=== PATIENT | female | born 1935 | race Caucasian/White ===

== ENCOUNTER → 2021-01-29 | Outpatient (CLI) | payer BC, OTHER | LOC: ECHO 10:48 | DX: Z01.810 Encounter for preprocedural cardiovascular examination (principal); I11.9 Hypertensive heart disease without heart failure; I08.1 Rheumatic disorders of both mitral and tricuspid valves; I27.20 Pulmonary hypertension, unspecified | CPT/HCPCS: ECHO; 93306 ==

== ENCOUNTER → 2021-03-28 | Outpatient (CLI) | payer BC, OTHER ==
[~2021-03-28] MED LIST: CARTIA XT120 MG PO; ELIQUIS 5 MG TAB5 MG PO; GABAPENTIN800 MG PO; LEVOTHYROXINE25 MCG PO; PRAVASTATIN SOD10 MG PO; PROTONIX 40 MG40 M1 PO; TYLENOL325 MG PO
[2021-03-28 10:45] LABS: HEMOGLOBIN 13.6 gm/dl (12.3-15.3); RED BLOOD COUNT 4.56 M/UL (4.00-5.10); WHITE BLOOD COUNT 6.9 K/UL (4.5-11.0)
[2021-03-28 11:06] LABS: BUN/CREATININE RATIO 19 (0-10)
== END ==
LOC: OPSV2 09:00 → EDSTATUS 09:00 → OPSV2 09:18
PROVIDERS: Orthopaedic Surgery
DX: Z01.818 Encounter for other preprocedural examination (principal); M75.102 Unspecified rotator cuff tear or rupture of left shoulder, not specified as traumatic
CPT/HCPCS: 36415; 80048; 81001; 85027; 87081; 93005

== ENCOUNTER → 2021-04-07 | Outpatient (CLI) | payer BC, OTHER ==
[~2021-04-07] MED LIST changes: +HYDROCODON-ACE1 EAC2 PO; +LEVOFLOXACIN500 MG PO; +POLYETHYLENE GL17 GM PO
[2021-04-07 12:29] LABS: BUN/CREATININE RATIO 21 (0-10)
== END ==
LOC: LAB 11:14
PROVIDERS: Orthopaedic Surgery
DX: Z01.812 Encounter for preprocedural laboratory examination (principal)
CPT/HCPCS: 36415; 80048; 86850; 86900; 86901

== ENCOUNTER 2021-04-08 08:53 | Inpatient (IN) | payer MEDICARE, OTHER ==
[~2021-04-08] VITALS: Ht 162.6 cm; Wt 81.2 kg
[~2021-04-08 08:53] MED LIST changes: -HYDROCODON-ACE1 EAC2 PO; -LEVOFLOXACIN500 MG PO; -POLYETHYLENE GL17 GM PO
[2021-04-09 04:10] LABS: HEMOGLOBIN 12.5 gm/dl (12.3-15.3); RED BLOOD COUNT 4.3 M/UL (4.00-5.10); WHITE BLOOD COUNT 11.6 K/UL (4.5-11.0)
[2021-04-09 04:26] LABS: BUN/CREATININE RATIO 20 (0-10)
[2021-04-10 07:39] LABS: RED BLOOD COUNT 4.09 M/UL (4.00-5.10)
[2021-04-10 07:41] LABS: WHITE BLOOD COUNT 14.6 K/UL (4.5-11.0)
[2021-04-10 09:11] LABS: BUN/CREATININE RATIO 26 (0-10)
[2021-04-11 07:16] LABS: HEMOGLOBIN 11.4 gm/dl (12.3-15.3); RED BLOOD COUNT 3.85 M/UL (4.00-5.10); WHITE BLOOD COUNT 11.6 K/UL (4.5-11.0)
[2021-04-11 08:15] LABS: BUN/CREATININE RATIO 20 (0-10)
[2021-04-11] MEDS ORDERED: POLYETHYLENE GL17 GM PO (09:14)
--- NOTE | 2021-04-11 09:18 | NUR ---
NOTIFIED TRINA LUIS APRN OF PATIENT'S STATEMENTS AND CONCERNS REGARDING DYSURIA NAD FREQUENCY. NEW ORDER FOR UA AND TO NOTIFY OF RESULTS.
[2021-04-11] MEDS ORDERED: HYDROCODON-ACE1 EAC2 PO ×2 (09:30→11:30)
--- NOTE | 2021-04-11 14:31 | NUR ---
NOTIFIED TRINA LUIS OF URINALYSIS RESULTS. NEW ORDER FOR C/S AND TO CONTACT DR. GOEL FOR ABT.
--- NOTE | 2021-04-12 09:15 | NUR ---
RAN COVID TEST THIS AM, CAME BACK NEGATIVE. ALERTED MD ON FLOOR OF RESULT. ALERTED EXECUTIVE ASSOCIATE OF RESULT.
--- NOTE | 2021-04-13 13:52 | NUR ---
SPOKE WITH ORTHO PA REGARDING DRESSING. NO DOCUMENTATION THAT [employer] HAD BEEN FOLLOWED ORDERED, THIS WAS RELATED TO THE PA. THE PA SAID HE WOULD DISCUSS WITH THE ORTHO MD REGARDING DRESSING CHANGE SINCE THE PATIENT WOULD LIKELY GO HOME ON WEDNESDAY AND HE WOULD PUT IN AN ORDER.
[2021-04-14 11:06] LABS: HEMOGLOBIN 13.3 gm/dl (12.3-15.3); RED BLOOD COUNT 4.52 M/UL (4.00-5.10); WHITE BLOOD COUNT 9.4 K/UL (4.5-11.0)
[2021-04-14 11:28] LABS: BUN/CREATININE RATIO 20 (0-10)
[2021-04-17] MEDS ORDERED: LEVOFLOXACIN500 MG PO (08:38)
[2021-04-17 09:43] LABS: HEMOGLOBIN 11.7 gm/dl (12.3-15.3)
[2021-04-17 09:44] LABS: RED BLOOD COUNT 4.01 M/UL (4.00-5.10)
[2021-04-17 10:30] LABS: BUN/CREATININE RATIO 22 (0-10)
== END 2021-04-17 09:05 | DRG 483 ==
LOC: OR 08:53 → M/S 17:20 → OR 17:21 → M/S 17:22 → OR 04-10 07:30 → M/S 04-17 09:05
PROVIDERS: Nurse Practitioner Family; ADMIT Orthopaedic Surgery
PROC: 0RRK00Z Replacement of Left Shoulder Joint with Reverse Ball and Socket Synthetic Substitute, Open Approach (ICD-10-PCS; principal; 2021-04-08 14:15)
DX: M19.012 Primary osteoarthritis, left shoulder (principal); N30.00 Acute cystitis without hematuria; I10 Essential (primary) hypertension; B96.5 Pseudomonas (aeruginosa) (mallei) (pseudomallei) as the cause of diseases classified elsewhere; K21.9 Gastro-esophageal reflux disease without esophagitis; E03.9 Hypothyroidism, unspecified; I48.0 Paroxysmal atrial fibrillation; E78.5 Hyperlipidemia, unspecified; Z86.16 Personal history of COVID-19; Z86.718 Personal history of other venous thrombosis and embolism; Z86.711 Personal history of pulmonary embolism; Z90.710 Acquired absence of both cervix and uterus; Z90.89 Acquired absence of other organs; Z95.3 Presence of xenogenic heart valve; Z98.41 Cataract extraction status, right eye; Z98.42 Cataract extraction status, left eye; Z98.890 Other specified postprocedural states; Z79.899 Other long term (current) drug therapy
CPT/HCPCS: 36415; 73020; 73030; 80048; 81001; 83735; 85027; 87077; 87086; 87186; 97110-GP-CQ; 97116-GP-CQ; 97161; 97165; 97530; 97530-GP-CQ; 97535; C1713; C1776; J0171; J0690; J1100; J2185; J2405; J2710; J2795; J7120; U0002